=== PATIENT | male | born 1940 | race Caucasian/White ===

== ENCOUNTER 2016-06-26 10:12 | Emergency (ER) | payer MEDICARE, OTHER ==
[~2016-06-26] VITALS: Ht 167.6 cm; Wt 75.0 kg
[2016-06-26 10:15] VITALS: TEMP 98.1; Ht 167.6 cm; Wt 75.0 kg
[2016-06-26] MEDS ORDERED: ASPIRIN 81 MG TAB PO STA (10:24)
--- NOTE | 2016-06-26 10:46 | RADRPT ---
PROCEDURE: XR Chest. CLINICAL INDICATION: Chest pain. TECHNIQUE: Single frontal view. COMPARISON: None. FINDINGS: There is bilateral air space and interstitial disease in the mid and lower lung zones consistent wit h pulmonary edema. A mass-like lesion is present in the left upper lobe measuring 8.7 x 7.5 cm. The heart is enlarged. There is calcification in the aorta consistent with atherosclerosis. There are sternal wires. A stent is present in the right brachial region superiorly. There is no pleural effusion. There is no pneumothorax. IMPRESSION: 1. Pulmonary edema. 2. Mass-like lesion in the left upper lobe measuring 8.7 x 7.[address] scan of the chest with contrast is advised. 3. Cardiomegaly. 4. Atherosclerosis. 5. Previous median sternotomy. 6. Stent in the right brachial region superiorly. RPTAT: QQ .Eric Colindres MD, Date Time Electronically viewed and signed by .Eric Colindres MD, on 06/26/2016 10:45 .R/
[2016-06-26 11:25] LABS: ADD SCAN DIFF NO
[2016-06-26 11:31] LABS: BASOPHILS % 0.2 % (0.0-2.0); LYMPHOCYTES # 0.8 10^3/ul (0.8-2.9); LYMPHOCYTES % 13.7 % (15.0-51.0); MEAN CORPUSCULAR HEMOGLOBIN 29.6 pg (29.0-33.0); MEAN CORPUSCULAR VOLUME 92.6 fl (82.0-101.0); MEAN PLATELET VOLUME 10.1 fl (7.4-10.4); MONOCYTE # 0.5 10^3/ul (0.3-0.9); MONOCYTES % 9.2 % (0.0-11.0); NEUTROPHIL # 4.5 10^3/ul (1.6-7.5); NEUTROPHILS % 76.4 % (39.0-77.0); PLATELET COUNT 185 10^3/UL (140-415); RED CELL DISTRIBUTION WIDTH 17.1 % (11.5-14.5); WHITE BLOOD COUNT 5.9 10^3/ul (4.8-10.8)
[2016-06-26] MEDS ORDERED: morphine 2 MG INJ IV STA (11:33)
[2016-06-26 11:38] LABS: POTASSIUM 3.9 mmol/L (3.5-5.1)
[2016-06-26 11:40] LABS: CREATININE 4.64 mg/dl (0.61-1.24)
[2016-06-26 11:41] LABS: CALCIUM 9.1 mg/dl (8.4-10.2)
[2016-06-26 11:52] LABS: TROPONIN-I 0.019 ng/ml (0.00-0.12)
[2016-06-26 11:54] LABS: INR 1.24; PARTIAL THROMBOPLASTIN TIME 35.2 Sec (25.0-35.0); PROTIME 15.7 Sec (12.2-14.2); PT RATIO 1.2
[2016-06-26 11:57] LABS: CK-MB 1.52 ng/ml (0.0-2.4)
[2016-06-26] MEDS ORDERED: NITROGLYCERIN (SL) 0.4 MG TAB SL PRN (12:00)
[2016-06-26] MEDS ORDERED: NIFE60TA11 PO (13:34)
[2016-06-26] MEDS ORDERED: APR50 PO (13:34)
[2016-06-26] MEDS ORDERED: VALS320T11 PO (13:35)
[2016-06-26] MEDS ORDERED: RANO500T2 PO (13:35)
[2016-06-26] MEDS ORDERED: CARV25TA79 PO (13:35)
[2016-06-26] MEDS ORDERED: ISOS60TA PO (13:36)
[2016-06-26] MEDS ORDERED: GLIM1TAB2 PO (13:36)
[2016-06-26] MEDS ORDERED: CLOP75TA27 PO (13:36)
[2016-06-26] MEDS ORDERED: ASPI-664 PO ×2 (13:37→13:39)
[2016-06-26] MEDS ORDERED: FINA5TAB4 PO (13:39)
[2016-06-26 13:41] VITALS: BP 161/55; PULSE 74; RESP 24
[2016-06-26] MEDS ORDERED: TAMS0.4C2 PO (13:42)
[2016-06-26] MEDS ORDERED: ATOR80TA75 PO (13:43)
[2016-06-26] MEDS ORDERED: CLON0.5T4 PO (13:46)
[2016-06-26] MEDS ORDERED: MONT10TA24 PO (13:46)
--- NOTE | 2016-06-26 16:08 | ERD ---
ER Documentation Chief Complaint Date/Time DATE: 06/26/16 TIME: 15:58 Chief Complaint BIB [facility] FOR EVAL OF CP DURING DIALYSIS. HPI 76-year-old male with a history of hypertension, diabetes, CAD status post PCI and CABG, ESRD on hemodialysis presenting with chest pain. The patient was at dialysis this morning and had 1 hour of dialysis after which he started feeling severe left-sided chest pain that was nonradiating. He had some mild shortness of breath associated with it. He rates the pain a 10 out of 10, aching, pressure-like. Ambulance was called and the patient was brought in. Patient took 1 of his own nitros with improvement of his pain. He states that he woke up this morning and had an episode of coughing with hemoptysis. After that he did not feel well all day. Of note, the patient's primary care doctor is Dr. Portillo at [facility]. Family and patient are requesting transfer there if the patient needs admission. ROS All systems reviewed and are negative except as per history of present illness. Medications Home Meds Reported Medications Montelukast Sodium* (Montelukast Sodium*) 10 Mg Tablet, 10 MG PO QHS, #30 TAB 06/26/16 Clonazepam* (Clonazepam*) 0.5 Mg Tablet, 0.5 MG PO QHS Y for ANXIETY, TAB 06/26/16 Atorvastatin* (Atorvastatin*) 80 Mg Tablet, 80 MG PO QHS, #30 TAB 06/26/16 Tamsulosin Hcl* (Tamsulosin Hcl*) 0.4 Mg Cap.er.24h, 0.4 MG PO HS, CAP 06/26/16 Finasteride* (Finasteride*) 5 Mg Tablet, 5 MG PO DAILY, TAB 06/26/16 Aspirin* (Aspirin* EC) 81 Mg Tablet.dr, 81 MG PO DAILY, TAB 06/26/16 Clopidogrel Bisulfate (Clopidogrel) 75 Mg Tablet, 75 MG PO DAILY, #30 TAB 06/26/16 Glimepiride* (Glimepiride*) 1 Mg Tablet, 1 MG PO WITH BREAKFAST, TAB 06/26/16 Isosorbide Mononitrate* (Isosorbide Mononitrate*) 60 Mg Tab.er.24h, 60 MG PO DAILY, TAB 06/26/16 Ranolazine* (Ranexa*) 500 Mg Tab.sr.12h, 500 MG PO Q12, TAB 06/26/16 Carvedilol* (Carvedilol*) 25 Mg Tablet, 25 MG PO BID, #60 TAB 06/26/16 Valsartan* (Diovan*) 320 Mg Tablet, 320 MG PO DAILY, TAB 06/26/16 Nifedipine (Nifedical Xl) 60 Mg Tab.er.24, 60 MG PO DAILY, TAB 06/26/16 Hydralazine Hcl* (Hydralazine Hcl*) 50 Mg Tab, 50 MG PO BID, #90 TAB 06/26/16 Discontinued Reported Medications Aspirin* (Aspirin* EC) 81 Mg Tablet.dr, 81 MG PO DAILY, TAB 06/26/16 Allergies Allergies: Coded Allergies: No Known Allergy (Unverified , 06/26/16) PMhx/Soc Hx Cardiac Disorders: Yes (Coronary artery disease, CABG, 5 stents, hypertension) Hx Miscellaneous Medical Probl: Yes (Diabetes, ESRD on hemodialysis) Hx Alcohol Use: No Hx Substance Use: No Hx Tobacco Use: No Smoking Status: Former smoker FmHx Family History: No diabetes Physical Exam Vitals Vital Signs Date Time Temp Pulse Resp B/P Pulse Ox O2 Delivery O2 Flow Rate FiO2 06/26/16 13:41 74 24 161/55 100 Room Air 06/26/16 12:38 82 24 157/55 98 Room Air 06/26/16 10:15 97.4 85 19 178/73 90 06/26/16 10:15 98.1 75 20 178/73 99 Room Air Physical Exam Const: Nontoxic, mild distress, pale, not diaphoretic Head: Atraumatic Eyes: Normal Conjunctiva ENT: Normal External Ears, Nose and Mouth. Nasal cannula in place Neck: Full range of motion. No JVD. No meningismus. Resp: Diminished breath sounds bilaterally up to mid lung, left greater than right, with bibasilar crackles Cardio: Regular rate and rhythm, 1/6 systolic murmur heard at the left parasternal region. 2+ distal pulses Abd: Soft, non tender, non distended. Normal bowel sounds Skin: No petechiae or rashes Back: No midline or flank tenderness Ext: No cyanosis, or edema Neur: Awake and alert and oriented 3, cranial nerves intact, strength and sensations intact, normal speech Psych: Normal Mood and Affect Result Diagram: 06/26/16 1050 06/26/16 1050 Results 24 hrs Laboratory Tests Test 06/26/16 10:50 Activated Partial Thromboplast Time 35.2Sec Anion Gap 21 Basophils # 0.010^3/ul Basophils % 0.2% Blood Urea Nitrogen 38mg/dl Calcium Level 9.1mg/dl Carbon Dioxide Level 31mmol/L Chloride Level 93mmol/L Creatine Kinase 57IU/L Creatine Kinase Index 2.7 Creatinine 4.64mg/dl Creatinine Kinase MB (Mass) 1.52ng/ml Eosinophils # 0.010^3/ul Eosinophils % 0.0% Glucose Level 150mg/dl Hematocrit 25.0% Hemoglobin 8.0g/dl INR International Normalized Ratio 1.24 Lymphocytes # 0.810^3/ul Lymphocytes % 13.7% Mean Corpuscular Hemoglobin 29.6pg Mean Corpuscular Hemoglobin Concent 32.0g/dl Mean Corpuscular Volume 92.6fl Mean Platelet Volume 10.1fl Monocytes # 0.510^3/ul Monocytes % 9.2% Neutrophils # 4.510^3/ul Neutrophils % 76.4% Nucleated Red Blood Cells # 0.010^3/ul Nucleated Red Blood Cells % 0.0/100WBC Platelet Count 56988^3/UL Potassium Level 3.9mmol/L Prothrombin Time 15.7Sec Prothrombin Time Ratio 1.2 Red Blood Count 2.7010^6/ul Red Cell Distribution Width 17.1% Sodium Level 141mmol/L Troponin I 0.019ng/ml White Blood Count 5.910^3/ul Current Medications Medications (Trade) Dose Ordered Sig/Twila Route PRN Reason Start Time Stop Time Status Last Admin Dose Admin Aspirin (Aspirin) 162 mg ONCE STAT PO 06/26/16 10:24 06/26/16 10:26 DC 06/26/16 13:39 Nitroglycerin (Nitroglycerin (Sl Tab) 0.4 Mg) 1 tab Q5M UP TO 3 DOSES PRN SL CHEST PAIN 06/26/16 12:00 06/26/16 13:49 DC Morphine Sulfate (morphine) 2 mg ONCE STAT IV 06/26/16 11:33 06/26/16 11:35 DC 06/26/16 11:43 Procedures/MDM EKG at 1026: Rate/Rhythm: Normal sinus rhythm at 80 QRS, ST, T-waves: Inferior lateral minimal ST depressions, no ST elevations Impression: Possible inferior lateral ischemia Repeat EKG at 1115 Rate/Rhythm: Normal sinus rhythm at 80 QRS, ST, T-waves: Inferior lateral minimal ST depressions, no ST elevations Impression: Possible inferior lateral ischemia, no significant change from prior Patient is presenting with chest pain concerning for acute coronary syndrome. When he initially presented, he had mild hypoxia to 90%, which improved with 2 L nasal cannula oxygen. Otherwise patient is hemodynamically stable. His EKG did show signs of ischemia without acute STEMI, however I do not have an old EKG to compare this to. With regard to his hemoptysis, the patient's family states that he has been diagnosed with a lung mass that has been biopsied in the past. They are not sure of the etiology of the mass but he has never had hemoptysis before. The chest x-ray noted this mass and also pulmonary edema. I suspect his hemoptysis is secondary to this mass which will need further evaluation. However he is currently protecting his airway and hemodynamically stable without any active signs of bleeding. With regard to his chest pain, I have a concern for acute coronary syndrome. I have a lower suspicion for acute pulmonary embolism or aortic dissection. his initial cardiac enzymes were normal. His EKG showed signs of ischemia. Aspirin was given orally. Morphine was given for pain with improvement. I spoke with his primary care physician, Dr. Portillo, who accepted the patient for transfer to [facility]. I will defer further workup to the inpatient team at [facility]. The patient and his family refused transfer with ambulance as they cannot afford it and insurance will not pay. I had them sign out AMA, but they reassured me that they are going directly to the hospital. I provided his results from today. Patient was hemodynamically stable upon discharge. Departure Diagnosis: Primary Impression: Chest pain Chest pain type: precordial chest pain Qualified Code: R07.2 - Precordial pain Additional Impressions: Pulmonary edema Chronicity: acute Qualified Code: J81.0 - Acute pulmonary edema Hemoptysis Lung mass Condition: Serious RAJNI BUCHANAN MD Jun 26, 2016 16:08
== END 2016-06-26 13:49 | disposition left against medical advice (07) ==
LOC: E/R 10:12
DX: R07.2 Precordial pain (principal); J81.0 Acute pulmonary edema; R04.2 Hemoptysis; R91.8 Other nonspecific abnormal finding of lung field; E11.9 Type 2 diabetes mellitus without complications; I25.10 Atherosclerotic heart disease of native coronary artery without angina pectoris; I12.0 Hypertensive chronic kidney disease with stage 5 chronic kidney disease or end stage renal disease; N18.6 End stage renal disease; Z79.84 Long term (current) use of oral hypoglycemic drugs; Z99.2 Dependence on renal dialysis; Z79.82 Long term (current) use of aspirin; Z95.1 Presence of aortocoronary bypass graft; Z87.891 Personal history of nicotine dependence
CPT/HCPCS: 36415; 71010; 80048; 82550; 82553; 84484; 85025; 85610; 85730; 93005; 96374; 99285; J2270

== ENCOUNTER 2017-06-08 01:23 | Inpatient (IN) | END 2017-06-14 17:50 | disposition EXP | DRG 870 ==